=== PATIENT | male | born 1990 | race Caucasian/White ===

== ENCOUNTER 2017-08-26 13:22 | Emergency (ER) | payer SELFPAY ==
[2017-08-26 13:41] VITALS: BP 138/78; PULSE 71; RESP 22; TEMP 98.4; O2SAT 100
[2017-08-26] MEDS ORDERED: SODIUM CHLOR 0.9% 1000 ML INJ 1,000 ML IV ONE (14:30)
[2017-08-26] MEDS ORDERED: ONDANSETRON HCL 4 MG/2 ML VIAL IV PUSH ONE (14:30)
[2017-08-26] MEDS ORDERED: KETOROLAC TROMETHAMINE 30 MG/ML (IVP) VIAL IV PUSH ONE (14:30)
--- NOTE | 2017-08-26 14:47 | PD ---
HPI . Kidney stone Chief Complaint: Complaint Time Seen by Provider: 14:19 Travel History International Travel<30 days: No Contact w/Intl Traveler<30days: No Traveled to known affect area: No History of Present Illness HPI Patient presents with a chief complaint of left flank pain and hematuria associated with nausea and vomiting. Onset was 1-2 days ago. He rates his pain 10/10. There are no modifying factors. He reports that he was recently seen at an OSH and diagnosed with a 7 mm kidney stone. [facility] Social History Tobacco Use: No Allergies-Medications (Allergen,Severity, Reaction): Coded Allergies: No Known Allergies (Unverified , 08/26/17) Reported Meds & Prescriptions Reported Meds & Active Scripts Active No Active Prescriptions or Reported Medications Review of Systems Except as stated in HPI: all other systems reviewed are Neg General / Constitutional: No: Fever, Chills Gastrointestinal: Positive: Nausea, Vomiting Genitourinary: Positive: Hematuria, Flank Pain Physical Exam Narrative GENERAL: Patient is lying on the stretcher on his right side in the position wearing sunglasses. He resists request to move. SKIN: warm/dry. Normal color and turgor. He is not diaphoretic. HEAD: Normocephalic. Atraumatic. NECK: Full range of motion without pain.. CARDIOVASCULAR: Regular rate and rhythm. RESPIRATORY: No accessory muscle use. Clear to auscultation. Breath sounds equal bilaterally. GASTROINTESTINAL: He is holding his abdomen stiff. He does not have any CVA tenderness. He states that this pain is "lower." MUSCULOSKELETAL: No obvious deformities. NEUROLOGICAL: Awake and alert. No obvious cranial nerve deficits. Motor grossly within normal limits. Normal speech. PSYCHIATRIC: Appropriate mood and affect; insight and judgment normal. Data Data Last Documented VS Vital Signs Date Time Temp Pulse Resp B/P (MAP) Pulse Ox O2 Delivery O2 Flow Rate FiO2 08/26/17 13:41 98.4 71 22 138/78 (98) 100 Orders Orders Ketorolac Inj (Toradol Inj) (08/26/17 14:30) Sodium Chlor 0.9% 1000 Ml Inj (Ns 1000 M (08/26/17 14:30) Ondansetron Inj (Zofran Inj) (08/26/17 14:30) Morphine Inj (Morphine Inj) (08/26/17 16:45) Tamsulosin (Flomax) (08/26/17 16:45) [facility] Medical Decision Making Medical Screen Exam Complete: Yes Emergency Medical Condition: Yes Differential Diagnosis Differential diagnosis of flank pain includes but is not limited to kidney stone , pyelonephritis, musculoskeletal pain, PE Narrative Course This patient presents with the chief complaint of left flank pain. He has a very unusual physical exam for someone with a kidney stone. Kidney stone patients usually have a benign abdominal exam and he is holding his muscles rigidly. He also resist movement and most kidney stone patients have trouble being still. I have pulled him up in [facility] he was given a prescription for 2010 mg oxycodone on 08/23 per a physician in [place] name Fabiola Stapleton. He stated to us that he was evaluated for this kidney stone at [facility] which is in [place]. His prior narcotic prescription is dated 08/01 4 tramadol No. 12. It was prescribed by a physician in [place] named Clint Xiong. His narcotic prescription prior to that was on February 14 for hydrocodone 5 mg #15 prescribed by Jamey De Los Santos in [place]. I have requested his records from [facility] before we proceed further with his evaluation. I will give him a liter of fluid and some IV Toradol/Zofran. The patient is now sound asleep. I have received his records from [facility]. He was seen there on 08/23 and diagnosed with a 7 mm stone at the right UVJ. His significant other tells me that he has not been able to follow-up with urology because he does not have any insurance. His discharge medications included Percocet, Phenergan, Keflex and Flomax. He still has some of everything except the Percocet. I will give him a mandatory referral to urology. I will give him a prescription for Motrin and Ultram. Diagnosis Primary Impression: Kidney stone Referrals: Torito Lake MD Patient Instructions: General Instructions, Kidney Stones (DC) Med/Other Pt SpecificInfo: Prescription(s) given Scripts Tramadol (Ultram) 50 Mg Tab 50 MG PO Q4H Y for PAIN, #12 TAB 0 Refills Prov: Brittany Wyatt MD 08/26/17 Ibuprofen (Ibuprofen) 800 Mg Tab 800 MG PO Q8H Y for Pain/Inflammation, #60 TAB 0 Refills Prov: Brittany Wyatt MD 08/26/17 Disposition: 01 DISCHARGE HOME Condition: Stable Brittany Wyatt MD Aug 26, 2017 14:47
[2017-08-26] MEDS ORDERED: TRAM50 PO (16:45)
[2017-08-26] MEDS ORDERED: IBUP1TAB7 PO (16:45)
[2017-08-26] MEDS ORDERED: TAMSULOSIN HCL 0.4 MG CAP PO ONE (16:45)
[2017-08-26] MEDS ORDERED: MORPHINE SULFATE 4 MG/ML INJ IV PUSH ONE (16:45)
== END 2017-08-26 17:23 | disposition home or self-care (01) ==
LOC: NEPD 13:22
DX: N20.0 Calculus of kidney (principal)
CPT/HCPCS: 96361; 96374; 96375; 99284; J1885; J2270; J2405; J7030